=== PATIENT | female | born 1990 | race Caucasian/White ===

== ENCOUNTER 2021-03-28 23:02 | Inpatient (IN) | payer SELFPAY ==
[2021-03-28 22:53] VITALS: BP 117/78; PULSE 79; RESP 15; TEMP 37.2; O2SAT 98
[2021-03-28 23:09] VITALS: BMI 21.5
--- NOTE | 2021-03-28 23:40 | PC.NURSE ---
Patient arrived with EMS and Security via wheelchair to unit at approximately 2245. Patient was assess for wounds, and admitting process completed. No wounds found. Patient stated her grandmother is very ill in the hospital at this time. In her grief of seeing her grandmother so ill patient decided to end her life by taking an entire bottle of ibuprofen and cholesterol pills. Patient did not specify how many pills of each she ingested orally. Patient denies pain at this time. Patient stated she has learned her lesson and will not attempt suicide again. Patient has a fiance who is very supportive of her. She has four children. Two boys and two girls. 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 Patient stated her mother and mother's boyfriend are also a great resource and support to her. 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 She completed the program of 30 days in-center. She's been clean and sober since then. Patient denies using drugs or alcohol but her alcohol level in her system at time of admission into the ER was 195. Patient inquired about the length of her stay. Patient informed doctor will be here to speak and evaluate her tomorrow after which we can have a more clear picture of the length of her stay. Encouraged patient to approach staff with any questions or concerns she may have now or in the future during her stay here.
[2021-03-29 06:00] VITALS: BP 106/58; PULSE 115; RESP 15; TEMP 36.7; O2SAT 95
[2021-03-29] MEDS: thiamine 100 mg Tablet PO (07:58)
[2021-03-29] MEDS: folic acid 1 mg Tablet PO (07:58)
[2021-03-29] MEDS: multivitamin therapeutic Tablet 1 TAB PO (07:58)
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
[2021-03-29 14:00] VITALS: BP 111/73; PULSE 87; RESP 16; TEMP 36.8; O2SAT 96
[2021-03-29] MEDS: trazodone 50 mg Tablet PO (20:51)
--- NOTE | 2021-03-29 20:52 | PC.NURSE ---
pt requested something for sleep . Trazodone 50mg po given.
[2021-03-29 20:57] VITALS: BP 113/73; PULSE 83; RESP 20; TEMP 37.2; O2SAT 98
[2021-03-30 06:00] VITALS: BP 95/59; PULSE 68; RESP 15; TEMP 36.8; O2SAT 99
[2021-03-30] MEDS: thiamine 100 mg Tablet PO (08:29)
[2021-03-30] MEDS: multivitamin therapeutic Tablet 1 TAB PO (08:29)
[2021-03-30] MEDS: folic acid 1 mg Tablet PO (08:29)
--- NOTE | 2021-03-30 12:26 | NPU.GN ---
[facility] Unit Group Topic:Coping Skills General Mood of Group: Divina did very well in group, she come to group on time and dressed appropriately. Well groomed. She spoke and contributed a lot in group. She is very talkative today and seems to be in a more positive mood this morning. She spoke about her job and about her children and also about her 4 year sobriety and how proud she was of herself for being sober 4 years. She shared this with the group today and yesterday. She is making huge strides and her iprovements have been amazing day by day. 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 She is concerned about getting back to work lucy. In group we worked on sensory coping skills, Divina did well with these.
[2021-03-30 14:00] VITALS: BP 106/71; PULSE 77; RESP 16; TEMP 36.8; O2SAT 100
[2021-03-30] MEDS: acetaminophen 325 mg Tablet 650 MG PO (16:03)
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
[2021-03-30 20:12] VITALS: BP 121/85; PULSE 95; RESP 15; TEMP 36.6; O2SAT 95
[2021-03-30] MEDS: trazodone 50 mg Tablet PO (21:30)
[2021-03-31 06:00] VITALS: BP 98/63; PULSE 92; RESP 15; TEMP 36.9; O2SAT 95
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
[2021-03-31 07:41] VITALS: BP 98/63; PULSE 92; RESP 15; TEMP 36.9; O2SAT 95
[2021-03-31] MEDS: folic acid 1 mg Tablet PO (07:50)
[2021-03-31] MEDS: multivitamin therapeutic Tablet 1 TAB PO (07:50)
[2021-03-31] MEDS: thiamine 100 mg Tablet PO (07:50)
== END 2021-03-31 10:02 | disposition home or self-care (01) | DRG 882 ==
PROVIDERS: Admitting Provider Psychiatry & Neurology Psychiatry; Visit Provider Psychiatry & Neurology Psychiatry
DX: F43.25 Adjustment disorder with mixed disturbance of emotions and conduct (principal); R45.851 Suicidal ideations; F17.210 Nicotine dependence, cigarettes, uncomplicated; F10.10 Alcohol abuse, uncomplicated; Z81.8 Family history of other mental and behavioral disorders; F43.10 Post-traumatic stress disorder, unspecified
CPT/HCPCS: 97165